=== PATIENT | male | born 1955 | race Caucasian/White ===

== ENCOUNTER 2023-06-02 19:27 | Inpatient (IN) | payer MEDICAID ==
[~2023-06-02] VITALS: Ht 172.7 cm; Wt 65.1 kg
[~2023-06-02 19:27] MED LIST: AMOX-580 PO; ATOR20TA66 PO; CARV6.253 PO; EMPA10TA PO; FURO40TA4 PO; LISI5TAB22 PO; NO HOME MEDS; NYSPWD TP
[2023-06-02] MEDS: CefTRIAXone/D5W-Rocephin 1gm 50 ML IV ONE (21:19)
[2023-06-02 23:58] VITALS: PULSE 87; RESP 27; O2SAT 99
[2023-06-03] VITALS (14 sets, daily range): BP systolic 114–147; BP diastolic 75–90; PULSE 76–88; RESP 16–27; O2SAT 94–99
[2023-06-03] MEDS: DOXYCYCLINE 100 MG in NORMAL SALINE 100ml IV.SOLN IV ONE
[2023-06-03] MEDS: normal saline 1000ml 1,000 ML IV SCH (02:10)
[2023-06-03] MEDS: propofol 1000mg/100ml bottle 100 ML IV SCH (02:15)
[2023-06-03] MEDS: ipratropium/albuterol 3ml nebule NEB ONE (02:20)
[2023-06-03] MEDS: LidoCAINE 2% Topical Jelly 11mL syringe TOP ONE (02:25)
[2023-06-03 03:11] LABS: BILIRUBIN,URINE SMALL (Neg); CLARITY,URINE SLIGHTLY CLOUDY (Clear); COLOR,URINE AMBER (Yellow); GLUCOSE, URINE NEGATIVE (Neg); KETONES,URINE NEGATIVE (Neg); LEUKOCYTE ESTERASE ,URINE NEGATIVE (Neg); NITRITES, URINE NEGATIVE (Neg); OCCULT BLOOD,URINE MODERATE (Neg); PROTEIN,URINE >=300 mg/dl (Neg)
[2023-06-03 03:12] LABS: UA COLLECTION TYPE FOLEY CATH
[2023-06-03 03:23] LABS: HYALINE CASTS 0-3 /LPF (NEGATIVE)
[2023-06-03 03:25] LABS: RBC,URINE 0-2 /HPF (0-2); WBC,URINE 0-4 /HPF (0-4)
[2023-06-03 03:26] LABS: TRANSITIONAL EPI CELLS,URINE MODERATE /HPF
[2023-06-03 03:28] LABS: AMORPHOUS URATES 1+; BACTERIA,URINE NONE SEEN /HPF (Neg); MUCUS STRANDS FEW /LPF (Neg)
[2023-06-03] MEDS: heparin, porcine 5000 units/ml vial SQ ONE (05:06)
[2023-06-03] MEDS ORDERED: rocuronium 10mg/ml inj IV ONE (08:00)
[2023-06-03] MEDS ORDERED: sodium bicarbonate (8.4%) 1 mEq/ml syringe ONE (08:00)
[2023-06-03] MEDS ORDERED: epiNEPHrine 0.1mg/ml 10ml syringe ONE (08:00)
[2023-06-03] MEDS ORDERED: etomidate 2mg/ml inj. ONE (08:00)
[2023-06-03] MEDS: dexamethasone inj 6 MG in normal saline 50ml IV soln 50 ML IV SCH (08:09)
[2023-06-04] VITALS (32 sets, daily range): BP systolic 93–154; BP diastolic 59–90; PULSE 64–90; RESP 12–28; O2SAT 91–100
[2023-06-04 06:13] LABS: ALBUMIN 2.7 G/DL (3.4-5.0); ALBUMIN/GLOBULIN RATIO 0.6 (1.1-1.5); ALKALINE PHOSPHATASE 108 IU/L (46-116); ANION GAP 9 (8-16); BILIRUBIN,TOTAL 0.5 MG/DL (0.1-1.0); CHLORIDE 103 MMOL/L (99-107); GLUCOSE 90 MG/DL (70-104); SODIUM 138 MMOL/L (135-145)
[2023-06-04 06:17] LABS: BASOPHILS % (AUTO) 0.2 % (0-1); EOSINOPHILS % (AUTO) 0 % (0-6); HEMATOCRIT 37.9 % (42.0-52.0); HEMOGLOBIN 12.1 g/dl (14.0-17.9); LYMPHOCYTES # (AUTO) 0.3 X10'3 (1.1-4.8); LYMPHOCYTES % (AUTO) 5.2 % (21-51); MEAN CORPUSCULAR HEMOGLOBIN 30.1 PG (27.0-31.0); MEAN CORPUSCULAR HGB CONC 31.9 g/dL (33.0-36.5); MEAN CORPUSCULAR VOLUME 94.4 FL (78-98); MEAN PLATELET VOLUME 7.5 FL (7.4-10.4); MONOCYTES # (AUTO) 0.4 X10'3 (0-0.9); MONOCYTES % (AUTO) 6.8 % (2-12); NEUTROPHILS # (AUTO) 5.3 X10'3 (1.8-7.7); NEUTROPHILS % (AUTO) 87.8 % (42-75); PLATELET COUNT 208 X10'3 (140-440); RED BLOOD COUNT 4.02 X10'6 (4.70-6.10); RED CELL DISTRIBUTION WIDTH 15.6 % (11.5-14.5)
[2023-06-04 06:31] LABS: ALANINE AMINOTRANSFERASE 255 U/L (12-78); ASPARTATE AMINO TRANSFERASE 414 U/L (10-37); BLOOD UREA NITROGEN 54 MG/DL (7-18); BUN/CREATININE RATIO 26.3 (10.0-20.0); CALCIUM 8.1 MG/DL (8.5-10.1); CREATININE 2.05 MG/DL (0.60-1.10); MAGNESIUM 2.1 MG/DL (1.5-2.4); PHOSPHORUS 6.2 MG/DL (2.3-4.5); POTASSIUM 5.3 MMOL/L (3.5-5.1); TOTAL CARBON DIOXIDE 25.7 MMOL/L (24-32); TOTAL PROTEIN 7.1 G/DL (6.4-8.2); eCRCL 34 ML/MIN; eGFR 33 ML/MIN
[2023-06-04] MEDS: budesonide 0.5mg/2ml UD nebule IH SCH (07:43)
[2023-06-04] MEDS: ipratropium/albuterol 3ml nebule NEB SCH (07:44)
[2023-06-04] MEDS: CefTRIAXone/D5W-Rocephin 1gm 50 ML IV SCH (09:20)
[2023-06-04] MEDS: methylPREDNISolone sod succ/PF 40mg inj. IV SCH (09:20)
[2023-06-04] MEDS: aspirin 81mg, enteric-coated 1 TAB TABLET.DR PO SCH (09:20)
[2023-06-04] MEDS: pantoprazole 40 MG vial IV SCH (09:20)
[2023-06-04] MEDS ORDERED: LISI5TAB22 PO (10:44)
[2023-06-04] MEDS ORDERED: CARV6.2553 PO (10:44)
[2023-06-04] MEDS ORDERED: ATOR20TA66 PO (10:44)
[2023-06-04] MEDS ORDERED: FURO40TA4 PO (10:44)
[2023-06-04] MEDS ORDERED: EMPA10TA PO (10:44)
[2023-06-04] MEDS ORDERED: guaiFENesin 200 MG/10 ML oral syrup UD cup PO PRN (15:50)
[2023-06-04] MEDS ORDERED: normal saline 1000ml 1,000 ML IV SCH (16:38)
[2023-06-04] MEDS ORDERED: potassium Cl 20 mEq SR tablet PO PRN ×2 (16:40)
[2023-06-04] MEDS ORDERED: potassium Cl 40MEQ/1/2NS 520ml 520 ML IV PRN (16:40)
[2023-06-04] MEDS ORDERED: magnesium 2GM in 50ml NS 50 ML IV PRN (16:40)
[2023-06-04] MEDS ORDERED: mag hydrox/Alum hydrox/simeth 30ml oral suspension PO PRN (16:40)
[2023-06-04] MEDS ORDERED: magnesium Cl slow-release 64mg tablet PO PRN (16:40)
[2023-06-04] MEDS ORDERED: ondansetron/PF 4mg/2ml inj IV PRN (16:40)
[2023-06-04] MEDS ORDERED: magnesium hydroxide 30ml (MOM) UD suspension PO PRN (16:40)
[2023-06-04] MEDS ORDERED: magnesium 4gm in 100ml NS 100 ML IV PRN (16:40)
[2023-06-04] MEDS ORDERED: albuterol 2.5 MG/3 ML nebule NEB PRN (16:40)
[2023-06-04] MEDS ORDERED: CALCIUM GLUC 1gm/50ml NACL,iso 50 ML IV PRN (17:05)
[2023-06-04] MEDS ORDERED: dextrose 50%-water 50ml dispensing syringe IV ONE (17:05)
[2023-06-04] MEDS ORDERED: sodium bicarbonate (8.4%) 1 mEq/ml syringe IV ONE (17:05)
[2023-06-04] MEDS ORDERED: insulin regular, human 10 units/0.1 ml syringe IV ONE (17:05)
[2023-06-04] MEDS: K and/or MAG REPLACEMENT MC SCH (20:00)
[2023-06-04] MEDS: azithromycin/NS 500mg/250ml 250 ML IV SCH (20:00)
[2023-06-04] MEDS: docusate sod 100mg capsule PO SCH (20:00)
[2023-06-04] MEDS: carvedilol 6.25mg tablet PO SCH (20:00)
[2023-06-04] MEDS: heparin, porcine 5000 units/ml vial SQ SCH (20:00)
[2023-06-04] MEDS: LORazepam 2 mg/ml vial IV PRN (20:01)
[2023-06-04] MEDS: LORazepam 2 mg/ml vial IM ONE (20:01)
[2023-06-04] MEDS: enoxaparin 40mg/0.4ml syringe SUBCUT SCH (20:25)
[2023-06-05] VITALS (40 sets, daily range): BP systolic 71–162; BP diastolic 49–112; PULSE 49–65; RESP 19–23; O2SAT 92–99
[2023-06-05] MEDS ORDERED: DEXTROSE 15 GM of carb/4 tabs (each vial/BOTTLE has 4 tablets) PO PRN ×2
[2023-06-05] MEDS ORDERED: dextrose 50%-water 50ml dispensing syringe IV PRN ×2
[2023-06-05] MEDS: MESSAGE TO PHARMACY PO ONE
[2023-06-05] MEDS ORDERED: glucagon, human recombinant 1mg kit SUBCUT PRN
[2023-06-05] MEDS: furosemide 40mg/4ml inj IV ONE (00:26)
[2023-06-05] MEDS: furosemide 40mg/4ml inj ONE (00:26)
[2023-06-05] MEDS: insulin Lispro (HumaLOG) vial - multi-dose SQ SCH (04:05)
[2023-06-05 06:24] LABS: BASOPHILS % (AUTO) 0.1 % (0-1); EOSINOPHILS % (AUTO) 0 % (0-6); HEMATOCRIT 36.7 % (42.0-52.0); HEMOGLOBIN 11.7 g/dl (14.0-17.9); LYMPHOCYTES # (AUTO) 0.2 X10'3 (1.1-4.8); LYMPHOCYTES % (AUTO) 3.7 % (21-51); MEAN CORPUSCULAR HEMOGLOBIN 29.8 PG (27.0-31.0); MEAN CORPUSCULAR HGB CONC 31.8 g/dL (33.0-36.5); MEAN CORPUSCULAR VOLUME 93.8 FL (78-98); MEAN PLATELET VOLUME 7.8 FL (7.4-10.4); MONOCYTES # (AUTO) 0.2 X10'3 (0-0.9); MONOCYTES % (AUTO) 3.3 % (2-12); NEUTROPHILS # (AUTO) 4.5 X10'3 (1.8-7.7); NEUTROPHILS % (AUTO) 92.9 % (42-75); PLATELET COUNT 194 X10'3 (140-440); RED BLOOD COUNT 3.91 X10'6 (4.70-6.10); RED CELL DISTRIBUTION WIDTH 15.7 % (11.5-14.5); WHITE BLOOD COUNT 4.8 X10'3 (4.5-11.0)
[2023-06-05 06:35] LABS: ALBUMIN 2.4 G/DL (3.4-5.0); ANION GAP 6 (8-16); BLOOD UREA NITROGEN 58 MG/DL (7-18); BUN/CREATININE RATIO 25.9 (10.0-20.0); CALCIUM 7.9 MG/DL (8.5-10.1); CHLORIDE 105 MMOL/L (99-107); CREATININE 2.24 MG/DL (0.60-1.10); GLUCOSE 142 MG/DL (70-104); POTASSIUM 5.1 MMOL/L (3.5-5.1); SODIUM 140 MMOL/L (135-145); TOTAL CARBON DIOXIDE 28.7 MMOL/L (24-32); eCRCL 31 ML/MIN; eGFR 29 ML/MIN
[2023-06-05] MEDS: atorvastatin 20mg tablet PO SCH (08:00)
[2023-06-05] MEDS: dexmedetomidin/NS 400mcg/100ml 100 ML IV PRN (08:30)
[2023-06-05 09:27] LABS: ALANINE AMINOTRANSFERASE 205 U/L (12-78); ALBUMIN/GLOBULIN RATIO 0.6 (1.1-1.5); ALKALINE PHOSPHATASE 91 IU/L (46-116); ASPARTATE AMINO TRANSFERASE 321 U/L (10-37); BILIRUBIN,TOTAL 0.4 MG/DL (0.1-1.0); MAGNESIUM 2.1 MG/DL (1.5-2.4); PHOSPHORUS 5.5 MG/DL (2.3-4.5); TOTAL PROTEIN 6.5 G/DL (6.4-8.2)
[2023-06-05] MEDS: NORepinephrine 8mg/ 250ml NS 250 ML IV SCH (10:52)
[2023-06-05] MEDS: NORepinephrine 8mg/ 250ml NS 250 ML IV ONE (10:52)
[2023-06-05] MEDS ORDERED: FENTANYL-0.9 % NACL/PF 100 ML IV PRN (11:15)
[2023-06-05] MEDS ORDERED: propofol 1000mg/100ml bottle 100 ML IV SCH (11:15)
[2023-06-05] MEDS: propofol 1000mg/100ml bottle 100 ML IV ONE (11:16)
[2023-06-05] MEDS: fentaNYL/PF 50MCG/1 ML 2ML syringe ONE (11:16)
[2023-06-05] MEDS ORDERED: fentaNYL/PF 50MCG/1 ML 2ML syringe IV PRN (11:20)
[2023-06-05] MEDS: LIDOcaine 1% (10mg/ml) 2ml vial ONE ×2 (11:25)
[2023-06-05 12:58] LABS: ABG HCO3 21.8 mmol/L (22.0-26.0); ABG OXYGEN SATURATION 99.4 % (94-97); ABG PCO2 (T) 32.5 mmHg (35.0-48.0); ABG PO2 (T) 154.4 mmHg (75.0-100.0); ALLEN'S TEST POSITIVE; FCOHb 0.1 % (0.0-3.9); FHHb 0.6 % (0.0-5.0); FMetHb 0.3 % (0.0-1.5); MODE VENT - PRVC; PATIENT TEMPERATURE 35.8; PEEP 5 cm H2O; RESPIRATORY RATE 22 b/min; TIDAL VOLUME 400 mL; TOTAL HEMOGLOBIN 12.6 G/dl (14.0-17.9)
[2023-06-05] MEDS: FENTANYL-0.9 % NACL/PF 100 ML IV PRN (14:36)
[2023-06-05] MEDS: propofol 1000mg/100ml bottle 100 ML IV SCH (14:37)
[2023-06-05 16:08] LABS: TRIGLYCERIDES 125 MG/DL (20-135)
[2023-06-05] MEDS: docusate sodium 100mg/10ml UD cup NG SCH (20:14)
[2023-06-05] MEDS: insulin glargine (Lantus) pen - multi-dose SQ SCH (21:00)
[2023-06-06] VITALS (39 sets, daily range): BP systolic 98–129; BP diastolic 56–79; PULSE 47–67; RESP 20–22; O2SAT 92–98
[2023-06-06 02:58] LABS: BASOPHILS % (AUTO) 0.3 % (0-1); EOSINOPHILS % (AUTO) 0 % (0-6); HEMATOCRIT 34.1 % (42.0-52.0); HEMOGLOBIN 11.3 g/dl (14.0-17.9); LYMPHOCYTES # (AUTO) 0.1 X10'3 (1.1-4.8); LYMPHOCYTES % (AUTO) 3.3 % (21-51); MEAN CORPUSCULAR HEMOGLOBIN 29.9 PG (27.0-31.0); MEAN CORPUSCULAR HGB CONC 33.1 g/dL (33.0-36.5); MEAN CORPUSCULAR VOLUME 90.2 FL (78-98); MEAN PLATELET VOLUME 8.1 FL (7.4-10.4); MONOCYTES # (AUTO) 0.1 X10'3 (0-0.9); MONOCYTES % (AUTO) 3.4 % (2-12); PLATELET COUNT 189 X10'3 (140-440); RED BLOOD COUNT 3.79 X10'6 (4.70-6.10); RED CELL DISTRIBUTION WIDTH 15.2 % (11.5-14.5); WHITE BLOOD COUNT 4.3 X10'3 (4.5-11.0)
[2023-06-06 03:02] LABS: ANION GAP 7 (8-16); BILIRUBIN,TOTAL 0.5 MG/DL (0.1-1.0); BLOOD UREA NITROGEN 66 MG/DL (7-18); BUN/CREATININE RATIO 29.2 (10.0-20.0); CALCIUM 7.8 MG/DL (8.5-10.1); CHLORIDE 105 MMOL/L (99-107); CREATININE 2.26 MG/DL (0.60-1.10); GLUCOSE 129 MG/DL (70-104); MAGNESIUM 2.2 MG/DL (1.5-2.4); PHOSPHORUS 3.8 MG/DL (2.3-4.5); POTASSIUM 4.3 MMOL/L (3.5-5.1); SODIUM 138 MMOL/L (135-145); TOTAL CARBON DIOXIDE 26.2 MMOL/L (24-32); eCRCL 31 ML/MIN; eGFR 29 ML/MIN
[2023-06-06 03:03] LABS: ALANINE AMINOTRANSFERASE 176 U/L (12-78); ALBUMIN 2.2 G/DL (3.4-5.0); ALBUMIN/GLOBULIN RATIO 0.6 (1.1-1.5); ALKALINE PHOSPHATASE 77 IU/L (46-116); ASPARTATE AMINO TRANSFERASE 245 U/L (10-37); TOTAL PROTEIN 5.9 G/DL (6.4-8.2); TRIGLYCERIDES 287 MG/DL (20-135)
[2023-06-06 03:17] LABS: ABG BASE EXCESS 0.2 mmol/L (-2.0-2.0); ABG HCO3 23.3 mmol/L (22.0-26.0); ABG OXYGEN SATURATION 98.1 % (94-97); ABG PH (T) 7.488 (7.340-7.440); ABG PO2 (T) 98.2 mmHg (75.0-100.0); ALLEN'S TEST Modified; FCOHb 0.3 % (0.0-3.9); FHHb 1.9 % (0.0-5.0); FMetHb 0.3 % (0.0-1.5); FO2Hb 97.5 % (94-97); MODE VENT - prvc; PATIENT TEMPERATURE 35.6; PEEP 5 cm H2O; RESPIRATORY RATE 22 b/min; TIDAL VOLUME 400 mL; TOTAL HEMOGLOBIN 12.4 G/dl (14.0-17.9)
[2023-06-06] MEDS: mineral oil/petrolatum ophthal oint EACHEYE SCH (13:56)
[2023-06-06] MEDS ORDERED: furosemide 40mg/4ml inj IV ONE (16:55)
[2023-06-06] MEDS ORDERED: furosemide 40mg/4ml inj IV SCH (17:30)
[2023-06-07] VITALS (44 sets, daily range): BP systolic 105–155; BP diastolic 60–100; PULSE 54–71; RESP 10–22; O2SAT 93–97
[2023-06-07 02:11] LABS: BASOPHILS % (AUTO) 0.2 % (0-1); EOSINOPHILS % (AUTO) 0 % (0-6); HEMATOCRIT 34.4 % (42.0-52.0); HEMOGLOBIN 11.1 g/dl (14.0-17.9); LYMPHOCYTES # (AUTO) 0.2 X10'3 (1.1-4.8); MEAN CORPUSCULAR HEMOGLOBIN 29.2 PG (27.0-31.0); MEAN CORPUSCULAR HGB CONC 32.2 g/dL (33.0-36.5); MEAN CORPUSCULAR VOLUME 90.9 FL (78-98); MEAN PLATELET VOLUME 8.2 FL (7.4-10.4); MONOCYTES # (AUTO) 0.1 X10'3 (0-0.9); MONOCYTES % (AUTO) 3.8 % (2-12); NEUTROPHILS # (AUTO) 3.6 X10'3 (1.8-7.7); PLATELET COUNT 182 X10'3 (140-440); RED BLOOD COUNT 3.78 X10'6 (4.70-6.10); RED CELL DISTRIBUTION WIDTH 15.3 % (11.5-14.5); WHITE BLOOD COUNT 3.9 X10'3 (4.5-11.0)
[2023-06-07 02:18] LABS: ALANINE AMINOTRANSFERASE 148 U/L (12-78); ALBUMIN 2.1 G/DL (3.4-5.0); ALBUMIN/GLOBULIN RATIO 0.6 (1.1-1.5); ALKALINE PHOSPHATASE 72 IU/L (46-116); ANION GAP 5 (8-16); ASPARTATE AMINO TRANSFERASE 207 U/L (10-37); BILIRUBIN,TOTAL 0.4 MG/DL (0.1-1.0); BLOOD UREA NITROGEN 67 MG/DL (7-18); BUN/CREATININE RATIO 33.3 (10.0-20.0); CALCIUM 7.6 MG/DL (8.5-10.1); CHLORIDE 106 MMOL/L (99-107); CREATININE 2.01 MG/DL (0.60-1.10); GLUCOSE 166 MG/DL (70-104); MAGNESIUM 2.3 MG/DL (1.5-2.4); PHOSPHORUS 3.6 MG/DL (2.3-4.5); POTASSIUM 4.4 MMOL/L (3.5-5.1); PREALBUMIN 13.3 MG/DL (19-36); SODIUM 139 MMOL/L (135-145); TOTAL CARBON DIOXIDE 27.7 MMOL/L (24-32); TOTAL PROTEIN 5.7 G/DL (6.4-8.2); TRIGLYCERIDES 186 MG/DL (20-135); eCRCL 35 ML/MIN; eGFR 33 ML/MIN
[2023-06-07 03:42] LABS: ABG HCO3 24.9 mmol/L (22.0-26.0); ABG OXYGEN SATURATION 95.5 % (94-97); ABG PCO2 (T) 36.4 mmHg (35.0-48.0); ABG PH (T) 7.451 (7.340-7.440); ABG PO2 (T) 76.2 mmHg (75.0-100.0); ALLEN'S TEST POSITIVE; FCOHb 0.3 % (0.0-3.9); FHHb 4.5 % (0.0-5.0); FMetHb 0.3 % (0.0-1.5); FO2Hb 94.9 % (94-97); MODE VENT - AC; PATIENT TEMPERATURE 36.6; PEEP 5 cm H2O; RESPIRATORY RATE 20 b/min; TIDAL VOLUME 400 mL; TOTAL HEMOGLOBIN 11.9 G/dl (14.0-17.9)
[2023-06-07] MEDS: risperiDONE 2mg tablet OGT SCH (11:10)
[2023-06-07] MEDS: furosemide 40mg/4ml inj IV ONE (11:11)
[2023-06-08] VITALS (38 sets, daily range): BP systolic 118–162; BP diastolic 59–100; PULSE 56–87; RESP 13–24; O2SAT 94–99
[2023-06-08 01:43] LABS: BASOPHILS % (AUTO) 0.4 % (0-1); EOSINOPHILS % (AUTO) 0 % (0-6); HEMATOCRIT 37.2 % (42.0-52.0); HEMOGLOBIN 12.3 g/dl (14.0-17.9); LYMPHOCYTES # (AUTO) 0.2 X10'3 (1.1-4.8); LYMPHOCYTES % (AUTO) 3.6 % (21-51); MEAN CORPUSCULAR HEMOGLOBIN 29.8 PG (27.0-31.0); MEAN CORPUSCULAR VOLUME 90.4 FL (78-98); MEAN PLATELET VOLUME 8.3 FL (7.4-10.4); MONOCYTES # (AUTO) 0.2 X10'3 (0-0.9); MONOCYTES % (AUTO) 4.2 % (2-12); NEUTROPHILS # (AUTO) 4.8 X10'3 (1.8-7.7); NEUTROPHILS % (AUTO) 91.8 % (42-75); PLATELET COUNT 186 X10'3 (140-440); RED BLOOD COUNT 4.11 X10'6 (4.70-6.10); RED CELL DISTRIBUTION WIDTH 15.4 % (11.5-14.5); WHITE BLOOD COUNT 5.2 X10'3 (4.5-11.0)
[2023-06-08 01:59] LABS: ALANINE AMINOTRANSFERASE 151 U/L (12-78); ALBUMIN 2.3 G/DL (3.4-5.0); ALBUMIN/GLOBULIN RATIO 0.5 (1.1-1.5); ALKALINE PHOSPHATASE 82 IU/L (46-116); ANION GAP 6 (8-16); ASPARTATE AMINO TRANSFERASE 186 U/L (10-37); BILIRUBIN,TOTAL 0.4 MG/DL (0.1-1.0); BLOOD UREA NITROGEN 76 MG/DL (7-18); BUN/CREATININE RATIO 41.3 (10.0-20.0); CALCIUM 7.7 MG/DL (8.5-10.1); CHLORIDE 104 MMOL/L (99-107); CREATININE 1.84 MG/DL (0.60-1.10); GLUCOSE 128 MG/DL (70-104); MAGNESIUM 2.2 MG/DL (1.5-2.4); PHOSPHORUS 2.9 MG/DL (2.3-4.5); POTASSIUM 4.7 MMOL/L (3.5-5.1); SODIUM 141 MMOL/L (135-145); TOTAL CARBON DIOXIDE 30.6 MMOL/L (24-32); TOTAL PROTEIN 6.5 G/DL (6.4-8.2); TRIGLYCERIDES 63 MG/DL (20-135); eCRCL 38 ML/MIN; eGFR 37 ML/MIN
[2023-06-08 03:40] LABS: ABG BASE EXCESS 4.1 mmol/L (-2.0-2.0); ABG HCO3 28.3 mmol/L (22.0-26.0); ABG OXYGEN SATURATION 96.3 % (94-97); ABG PCO2 (T) 40.7 mmHg (35.0-48.0); ABG PO2 (T) 78.1 mmHg (75.0-100.0); ALLEN'S TEST Modified; FCOHb 0.4 % (0.0-3.9); FHHb 3.7 % (0.0-5.0); FMetHb 0.3 % (0.0-1.5); FO2Hb 95.6 % (94-97); MODE ac/prvc; PATIENT TEMPERATURE 36.9; PEEP 5 cm H2O; RESPIRATORY RATE 20 b/min; TIDAL VOLUME 400 mL; TOTAL HEMOGLOBIN 13.4 G/dl (14.0-17.9)
[2023-06-08] MEDS: furosemide 40mg/4ml inj IV SCH (08:37)
[2023-06-08] MEDS: lactulose 20gm/30ml cup OGT SCH (14:37)
[2023-06-08] MEDS: albuterol 60 PUFF/8GM Inhaler (90mcg/1 puff) IH SCH (21:08)
[2023-06-09] VITALS (27 sets, daily range): BP systolic 120–167; BP diastolic 78–108; PULSE 74–89; RESP 15–24; TEMP 97.6; O2SAT 93–97
[2023-06-09 03:44] LABS: BASOPHILS % (AUTO) 0.1 % (0-1); EOSINOPHILS % (AUTO) 0 % (0-6); HEMATOCRIT 35.7 % (42.0-52.0); HEMOGLOBIN 11.9 g/dl (14.0-17.9); LYMPHOCYTES # (AUTO) 0.2 X10'3 (1.1-4.8); LYMPHOCYTES % (AUTO) 3.2 % (21-51); MEAN CORPUSCULAR HEMOGLOBIN 30.8 PG (27.0-31.0); MEAN CORPUSCULAR HGB CONC 33.3 g/dL (33.0-36.5); MEAN CORPUSCULAR VOLUME 92.6 FL (78-98); MEAN PLATELET VOLUME 8.5 FL (7.4-10.4); MONOCYTES # (AUTO) 0.2 X10'3 (0-0.9); MONOCYTES % (AUTO) 3.8 % (2-12); NEUTROPHILS # (AUTO) 5.3 X10'3 (1.8-7.7); NEUTROPHILS % (AUTO) 92.9 % (42-75); PLATELET COUNT 195 X10'3 (140-440); RED BLOOD COUNT 3.86 X10'6 (4.70-6.10); RED CELL DISTRIBUTION WIDTH 15.4 % (11.5-14.5); WHITE BLOOD COUNT 5.7 X10'3 (4.5-11.0)
[2023-06-09 03:47] LABS: ALANINE AMINOTRANSFERASE 122 U/L (12-78); ALBUMIN 2.5 G/DL (3.4-5.0); ALBUMIN/GLOBULIN RATIO 0.6 (1.1-1.5); ALKALINE PHOSPHATASE 73 IU/L (46-116); ANION GAP 5 (8-16); ASPARTATE AMINO TRANSFERASE 151 U/L (10-37); BILIRUBIN,TOTAL 0.4 MG/DL (0.1-1.0); BLOOD UREA NITROGEN 69 MG/DL (7-18); BUN/CREATININE RATIO 45.7 (10.0-20.0); CALCIUM 7.9 MG/DL (8.5-10.1); CHLORIDE 104 MMOL/L (99-107); CREATININE 1.51 MG/DL (0.60-1.10); GLUCOSE 97 MG/DL (70-104); MAGNESIUM 2.1 MG/DL (1.5-2.4); PHOSPHORUS 5.3 MG/DL (2.3-4.5); POTASSIUM 4.7 MMOL/L (3.5-5.1); SODIUM 142 MMOL/L (135-145); TOTAL CARBON DIOXIDE 32.8 MMOL/L (24-32); TOTAL PROTEIN 6.6 G/DL (6.4-8.2); eCRCL 47 ML/MIN; eGFR 46 ML/MIN
[2023-06-09] MEDS: furosemide 40mg/4ml inj IV SCH (12:57)
[2023-06-09] MEDS: lactose-reduced food (Ensure Enlive) - 237ml bottle PO SCH (13:00)
[2023-06-09] MEDS: acetaminophen 325mg tablet PO PRN (17:30)
[2023-06-10] VITALS (14 sets, daily range): BP systolic 130–153; BP diastolic 76–91; PULSE 82–99; RESP 10–18; TEMP 98–98.8; O2SAT 91–95
[2023-06-10 03:51] LABS: ABG BASE EXCESS 16.8 mmol/L (-2.0-2.0); ABG HCO3 44.8 mmol/L (22.0-26.0); ABG OXYGEN SATURATION 91.5 % (94-97); ABG PCO2 (T) 65.9 mmHg (35.0-48.0); ABG PH (T) 7.448 (7.340-7.440); ABG PO2 (T) 57.6 mmHg (75.0-100.0); ALLEN'S TEST Modified; FCOHb 0.9 % (0.0-3.9); FHHb 8.4 % (0.0-5.0); FLOW 2 L/min; FMetHb 0.3 % (0.0-1.5); FO2Hb 90.4 % (94-97); MODE NASAL CANNULA; PATIENT TEMPERATURE 36.4; TOTAL HEMOGLOBIN 14.8 G/dl (14.0-17.9)
[2023-06-10 04:47] LABS: ALANINE AMINOTRANSFERASE 124 U/L (12-78); ALBUMIN 2.8 G/DL (3.4-5.0); ALBUMIN/GLOBULIN RATIO 0.6 (1.1-1.5); ALKALINE PHOSPHATASE 93 IU/L (46-116); ANION GAP 5 (8-16); ASPARTATE AMINO TRANSFERASE 143 U/L (10-37); BILIRUBIN,TOTAL 0.5 MG/DL (0.1-1.0); BLOOD UREA NITROGEN 61 MG/DL (7-18); BUN/CREATININE RATIO 41.8 (10.0-20.0); CALCIUM 8.4 MG/DL (8.5-10.1); CHLORIDE 97 MMOL/L (99-107); CREATININE 1.46 MG/DL (0.60-1.10); GLUCOSE 74 MG/DL (70-104); MAGNESIUM 1.9 MG/DL (1.5-2.4); PHOSPHORUS 3.9 MG/DL (2.3-4.5); SODIUM 143 MMOL/L (135-145); TOTAL PROTEIN 7.6 G/DL (6.4-8.2); eCRCL 48 ML/MIN; eGFR 48 ML/MIN
[2023-06-10 05:06] LABS: TOTAL CARBON DIOXIDE 41.2 MMOL/L (24-32)
[2023-06-10] MEDS: dexamethasone 4mg/ml inj IV SCH (07:29)
[2023-06-10] MEDS ORDERED: dexamethasone 4mg/ml inj IM SCH (08:00)
[2023-06-10] MEDS: furosemide 40mg/4ml inj IV SCH (13:52)
[2023-06-11] VITALS (13 sets, daily range): BP systolic 97–135; BP diastolic 59–85; PULSE 91–105; RESP 14–24; TEMP 97.9–98.6; O2SAT 92–95
[2023-06-11 07:43] LABS: ALANINE AMINOTRANSFERASE 94 U/L (12-78); ALBUMIN/GLOBULIN RATIO 0.6 (1.1-1.5); ALKALINE PHOSPHATASE 91 IU/L (46-116); ANION GAP 10 (8-16); ASPARTATE AMINO TRANSFERASE 118 U/L (10-37); BILIRUBIN,TOTAL 0.6 MG/DL (0.1-1.0); BLOOD UREA NITROGEN 72 MG/DL (7-18); BUN/CREATININE RATIO 44.2 (10.0-20.0); CALCIUM 9.3 MG/DL (8.5-10.1); CHLORIDE 95 MMOL/L (99-107); CREATININE 1.63 MG/DL (0.60-1.10); GLUCOSE 100 MG/DL (70-104); SODIUM 146 MMOL/L (135-145); TOTAL PROTEIN 8.2 G/DL (6.4-8.2); eCRCL 43 ML/MIN; eGFR 43 ML/MIN
[2023-06-11 07:47] LABS: TOTAL CARBON DIOXIDE 41.3 MMOL/L (24-32)
[2023-06-11 08:29] LABS: BASOPHILS % (AUTO) 0.3 % (0-1); EOSINOPHILS # (AUTO) 0.1 X10'3 (0-0.9); EOSINOPHILS % (AUTO) 0.7 % (0-6); HEMATOCRIT 46.6 % (42.0-52.0); HEMOGLOBIN 15.3 g/dl (14.0-17.9); LYMPHOCYTES # (AUTO) 0.4 X10'3 (1.1-4.8); LYMPHOCYTES % (AUTO) 5.5 % (21-51); MEAN CORPUSCULAR HEMOGLOBIN 28.8 PG (27.0-31.0); MEAN CORPUSCULAR HGB CONC 32.9 g/dL (33.0-36.5); MEAN PLATELET VOLUME 8.5 FL (7.4-10.4); MONOCYTES # (AUTO) 0.6 X10'3 (0-0.9); MONOCYTES % (AUTO) 8.4 % (2-12); NEUTROPHILS # (AUTO) 6.4 X10'3 (1.8-7.7); NEUTROPHILS % (AUTO) 85.1 % (42-75); PLATELET COUNT 251 X10'3 (140-440); RED BLOOD COUNT 5.31 X10'6 (4.70-6.10); RED CELL DISTRIBUTION WIDTH 15.1 % (11.5-14.5); WHITE BLOOD COUNT 7.5 X10'3 (4.5-11.0)
[2023-06-11 08:35] LABS: MEAN CORPUSCULAR VOLUME 88.6 FL (78-98)
[2023-06-11] MEDS: furosemide 40mg/4ml inj IV SCH (20:00)
[2023-06-12] VITALS (13 sets, daily range): BP systolic 91–128; BP diastolic 63–79; PULSE 87–105; RESP 14–24; TEMP 97.9–98.8; O2SAT 81–95
[2023-06-12 06:40] LABS: BASOPHILS % (AUTO) 0.3 % (0-1); EOSINOPHILS % (AUTO) 0.1 % (0-6); HEMATOCRIT 45.2 % (42.0-52.0); HEMOGLOBIN 15.1 g/dl (14.0-17.9); LYMPHOCYTES # (AUTO) 0.5 X10'3 (1.1-4.8); LYMPHOCYTES % (AUTO) 6.1 % (21-51); MEAN CORPUSCULAR HEMOGLOBIN 29.8 PG (27.0-31.0); MEAN CORPUSCULAR HGB CONC 33.4 g/dL (33.0-36.5); MEAN CORPUSCULAR VOLUME 89.1 FL (78-98); MEAN PLATELET VOLUME 8.6 FL (7.4-10.4); MONOCYTES # (AUTO) 0.7 X10'3 (0-0.9); MONOCYTES % (AUTO) 8.1 % (2-12); NEUTROPHILS # (AUTO) 7.3 X10'3 (1.8-7.7); NEUTROPHILS % (AUTO) 85.4 % (42-75); PLATELET COUNT 252 X10'3 (140-440); RED BLOOD COUNT 5.08 X10'6 (4.70-6.10); RED CELL DISTRIBUTION WIDTH 15.4 % (11.5-14.5); WHITE BLOOD COUNT 8.5 X10'3 (4.5-11.0)
[2023-06-12 08:51] LABS: ALANINE AMINOTRANSFERASE 91 U/L (12-78); ALBUMIN 3.1 G/DL (3.4-5.0); ALBUMIN/GLOBULIN RATIO 0.6 (1.1-1.5); ALKALINE PHOSPHATASE 91 IU/L (46-116); ANION GAP 11 (8-16); ASPARTATE AMINO TRANSFERASE 107 U/L (10-37); BILIRUBIN,TOTAL 0.6 MG/DL (0.1-1.0); BLOOD UREA NITROGEN 97 MG/DL (7-18); BUN/CREATININE RATIO 40.4 (10.0-20.0); CALCIUM 9.5 MG/DL (8.5-10.1); CHLORIDE 98 MMOL/L (99-107); GLUCOSE 117 MG/DL (70-104); POTASSIUM 4.6 MMOL/L (3.5-5.1); SODIUM 149 MMOL/L (135-145); TOTAL CARBON DIOXIDE 39.6 MMOL/L (24-32); TOTAL PROTEIN 8.3 G/DL (6.4-8.2); eCRCL 29 ML/MIN; eGFR 27 ML/MIN
[2023-06-12] MEDS: normal saline 1000ml 1,000 ML IV SCH (13:44)
[2023-06-12] MEDS: sodium chloride 0.45% 1,000 ML IV SCH (18:40)
[2023-06-12] MEDS: lactose-reduced food (Ensure Enlive) - 237ml bottle PO SCH (19:30)
[2023-06-13] VITALS (15 sets, daily range): BP systolic 130–142; BP diastolic 65–79; PULSE 74–91; RESP 14–24; TEMP 97.8–98.9; O2SAT 90–95
[2023-06-13 06:12] LABS: BASOPHILS % (AUTO) 0.3 % (0-1); EOSINOPHILS % (AUTO) 0.1 % (0-6); HEMATOCRIT 42.6 % (42.0-52.0); HEMOGLOBIN 13.6 g/dl (14.0-17.9); LYMPHOCYTES # (AUTO) 0.8 X10'3 (1.1-4.8); LYMPHOCYTES % (AUTO) 7.9 % (21-51); MEAN CORPUSCULAR HEMOGLOBIN 28.5 PG (27.0-31.0); MEAN CORPUSCULAR HGB CONC 31.9 g/dL (33.0-36.5); MEAN CORPUSCULAR VOLUME 89.4 FL (78-98); MEAN PLATELET VOLUME 8.5 FL (7.4-10.4); MONOCYTES # (AUTO) 0.5 X10'3 (0-0.9); NEUTROPHILS # (AUTO) 8.6 X10'3 (1.8-7.7); NEUTROPHILS % (AUTO) 86.7 % (42-75); PLATELET COUNT 217 X10'3 (140-440); RED BLOOD COUNT 4.77 X10'6 (4.70-6.10); RED CELL DISTRIBUTION WIDTH 15.8 % (11.5-14.5)
[2023-06-13 06:22] LABS: ALANINE AMINOTRANSFERASE 66 U/L (12-78); ALBUMIN 2.7 G/DL (3.4-5.0); ALBUMIN/GLOBULIN RATIO 0.6 (1.1-1.5); ALKALINE PHOSPHATASE 75 IU/L (46-116); ANION GAP 7 (8-16); ASPARTATE AMINO TRANSFERASE 89 U/L (10-37); BILIRUBIN,TOTAL 0.7 MG/DL (0.1-1.0); BLOOD UREA NITROGEN 109 MG/DL (7-18); BUN/CREATININE RATIO 45.8 (10.0-20.0); CHLORIDE 104 MMOL/L (99-107); CREATININE 2.38 MG/DL (0.60-1.10); GLUCOSE 89 MG/DL (70-104); POTASSIUM 4.2 MMOL/L (3.5-5.1); SODIUM 152 MMOL/L (135-145); TOTAL PROTEIN 7.6 G/DL (6.4-8.2); eCRCL 30 ML/MIN; eGFR 27 ML/MIN
[2023-06-13 06:39] LABS: TOTAL CARBON DIOXIDE 40.6 MMOL/L (24-32)
[2023-06-13] MEDS ORDERED: furosemide 40mg/4ml inj IV SCH (08:00)
[2023-06-13] MEDS: risperiDONE 0.5mg tablet OGT SCH (08:44)
[2023-06-13] MEDS ORDERED: LORazepam 2 mg/ml vial IV PRN (19:10)
[2023-06-13 21:37] LABS: ABG BASE EXCESS 14.9 mmol/L (-2.0-2.0); ABG HCO3 43.3 mmol/L (22.0-26.0); ABG OXYGEN SATURATION 90.3 % (94-97); ABG PCO2 (T) 72.3 mmHg (35.0-48.0); ABG PH (T) 7.396 (7.340-7.440); ABG PO2 (T) 60.8 mmHg (75.0-100.0); ALLEN'S TEST Modified; FCOHb 0.4 % (0.0-3.9); FHHb 9.7 % (0.0-5.0); FLOW 10 L/min; FMetHb 0.1 % (0.0-1.5); FO2Hb 89.8 % (94-97); MODE Salter; PATIENT TEMPERATURE 37.2
[2023-06-13 23:56] LABS: OSMOLALITY 347 MOSM/K (280-300)
[2023-06-14] VITALS (14 sets, daily range): BP systolic 129–163; BP diastolic 65–78; PULSE 74–88; RESP 14–23; TEMP 97.6–99.2; O2SAT 94–96
[2023-06-14 00:09] LABS: PRO BRAIN NATRIURETIC PEPTIDE 2335 PG/ML (0-125)
[2023-06-14 06:56] LABS: EOSINOPHILS % (AUTO) 0 % (0-6); HEMOGLOBIN 12.6 g/dl (14.0-17.9); MONOCYTES # (AUTO) 0.4 X10'3 (0-0.9)
[2023-06-14 07:00] LABS: BASOPHILS % (AUTO) 0.1 % (0-1); HEMATOCRIT 39.4 % (42.0-52.0); LYMPHOCYTES # (AUTO) 0.4 X10'3 (1.1-4.8); LYMPHOCYTES % (AUTO) 4.8 % (21-51); MEAN CORPUSCULAR HEMOGLOBIN 28.5 PG (27.0-31.0); MEAN CORPUSCULAR HGB CONC 32.1 g/dL (33.0-36.5); MEAN PLATELET VOLUME 8.6 FL (7.4-10.4); MONOCYTES % (AUTO) 4.9 % (2-12); NEUTROPHILS # (AUTO) 7.7 X10'3 (1.8-7.7); NEUTROPHILS % (AUTO) 90.2 % (42-75); PLATELET COUNT 188 X10'3 (140-440); RED BLOOD COUNT 4.42 X10'6 (4.70-6.10); RED CELL DISTRIBUTION WIDTH 15.5 % (11.5-14.5); WHITE BLOOD COUNT 8.5 X10'3 (4.5-11.0)
[2023-06-14 07:08] LABS: ALANINE AMINOTRANSFERASE 54 U/L (12-78); ALBUMIN 2.5 G/DL (3.4-5.0); ALBUMIN/GLOBULIN RATIO 0.5 (1.1-1.5); ALKALINE PHOSPHATASE 69 IU/L (46-116); ANION GAP 4 (8-16); ASPARTATE AMINO TRANSFERASE 86 U/L (10-37); BILIRUBIN,TOTAL 0.6 MG/DL (0.1-1.0); BLOOD UREA NITROGEN 87 MG/DL (7-18); BUN/CREATININE RATIO 55.1 (10.0-20.0); CALCIUM 8.8 MG/DL (8.5-10.1); CHLORIDE 107 MMOL/L (99-107); CREATININE 1.58 MG/DL (0.60-1.10); GLUCOSE 87 MG/DL (70-104); POTASSIUM 4.1 MMOL/L (3.5-5.1); SODIUM 151 MMOL/L (135-145); TOTAL CARBON DIOXIDE 39.9 MMOL/L (24-32); TOTAL PROTEIN 7.4 G/DL (6.4-8.2); eCRCL 42 ML/MIN; eGFR 44 ML/MIN
[2023-06-14 07:11] LABS: BILIRUBIN,URINE NEGATIVE (Neg); CLARITY,URINE SLIGHTLY CLOUDY (Clear); COLOR,URINE YELLOW (Yellow); GLUCOSE, URINE NEGATIVE (Neg); KETONES,URINE NEGATIVE (Neg); LEUKOCYTE ESTERASE ,URINE TRACE (Neg); NITRITES, URINE NEGATIVE (Neg); OCCULT BLOOD,URINE LARGE (Neg); PROTEIN,URINE 100 mg/dl (Neg); UROBILINOGEN,URINE 0.2 E.U/dL (0.2-1.0)
[2023-06-14 07:17] LABS: UA COLLECTION TYPE NON-SPECIFIED
[2023-06-14 07:19] LABS: RBC,URINE 20-50 /HPF (0-2)
[2023-06-14 07:20] LABS: BACTERIA,URINE 3+ /HPF (Neg); SQUAMOUS EPITHELIAL CELL,UR FEW /LPF (FEW)
[2023-06-14 07:22] LABS: FATTY CASTS,URINE 0-3 /LPF (NEGATIVE)
[2023-06-14 07:24] LABS: WBC,URINE 30-50 /HPF (0-4)
[2023-06-14 07:30] LABS: TOTAL PROTEIN,URINE RANDOM 133.7 MG/DL
[2023-06-14] MEDS: acetaZOLAMIDE IV 500mg inj IV SCH (12:47)
[2023-06-14] MEDS: spironolactone 25 MG tablet PO SCH (20:00)
[2023-06-15 02:00] VITALS: BP 143/83; PULSE 82; RESP 19; TEMP 97.8; O2SAT 95
[2023-06-15 02:12] VITALS: PULSE 69; RESP 20; O2SAT 93
[2023-06-15 06:30] VITALS: O2SAT 97
[2023-06-15 07:00] VITALS: BP 126/73; PULSE 67; RESP 17; TEMP 98.8; O2SAT 98
[2023-06-15] MEDS ORDERED: LIDOcaine 1% 30ml preserv. free vial ONE (07:28)
[2023-06-15] MEDS ORDERED: iohexol 350MG/ML 100ml bottle IV ONE (07:29)
[2023-06-15] MEDS ORDERED: fentaNYL/PF 50MCG/1 ML 2ML syringe ONE (07:29)
[2023-06-15] MEDS ORDERED: heparin 1,000unit/ml 10ml vial 10 ML ONE (07:29)
[2023-06-15] MEDS ORDERED: heparin 1,000 UNITS/NS 500ml 500 ML ONE (07:29)
[2023-06-15] MEDS ORDERED: midazolam 1 mg/ML 2ml injection ONE (07:29)
[2023-06-15] MEDS ORDERED: nitroGLYCERIN 500mcg/5mL D5W 5 ML IV ONE (07:34)
== END 2023-06-15 07:37 | DRG 133 ==
LOC: EDBD 19:27 → ER 19:27 → ED HOLD 06-03 05:43 → EDBEDREQ 06-03 15:06 → CICU 2S 06-03 15:27 → ORTHO 4S 06-09 18:45 → PCU 3S 06-14 01:15 → CICU 2S 06-15 07:05
PROVIDERS: ADMIT Surgery Surgical Critical Care; ATTEND Surgery Surgical Critical Care
PROC: 5A09357 Assistance with Respiratory Ventilation, Less than 24 Consecutive Hours, Continuous Positive Airway Pressure (ICD-10-PCS; 2023-06-03)
PROC: 5A09357 Assistance with Respiratory Ventilation, Less than 24 Consecutive Hours, Continuous Positive Airway Pressure (ICD-10-PCS; 2023-06-04)
PROC: 0W9B3ZZ Drainage of Left Pleural Cavity, Percutaneous Approach (ICD-10-PCS; principal; 2023-06-05)
PROC: 5A1945Z Respiratory Ventilation, 24-96 Consecutive Hours (ICD-10-PCS; 2023-06-05)
PROC: 0BH17EZ Insertion of Endotracheal Airway into Trachea, Via Natural or Artificial Opening (ICD-10-PCS; 2023-06-05)
PROC: 02HV33Z Insertion of Infusion Device into Superior Vena Cava, Percutaneous Approach (ICD-10-PCS; 2023-06-05)
PROC: 5A0935A Assistance with Respiratory Ventilation, Less than 24 Consecutive Hours, High Flow/Velocity Cannula (ICD-10-PCS; 2023-06-12)
PROC: 5A0935A Assistance with Respiratory Ventilation, Less than 24 Consecutive Hours, High Flow/Velocity Cannula (ICD-10-PCS; 2023-06-13)
PROC: 5A0935A Assistance with Respiratory Ventilation, Less than 24 Consecutive Hours, High Flow/Velocity Cannula (ICD-10-PCS; 2023-06-14)
DX: J96.01 Acute respiratory failure with hypoxia (principal); J12.82 Pneumonia due to coronavirus disease 2019; I50.23 Acute on chronic systolic (congestive) heart failure; G93.41 Metabolic encephalopathy; E43 Unspecified severe protein-calorie malnutrition; I21.A1 Myocardial infarction type 2; U07.1 COVID-19; K76.1 Chronic passive congestion of liver; J96.02 Acute respiratory failure with hypercapnia; I13.0 Hypertensive heart and chronic kidney disease with heart failure and stage 1 through stage 4 chronic kidney disease, or unspecified chronic kidney disease; N18.9 Chronic kidney disease, unspecified; E87.5 Hyperkalemia; F32.A Depression, unspecified; J44.0 Chronic obstructive pulmonary disease with (acute) lower respiratory infection; J44.1 Chronic obstructive pulmonary disease with (acute) exacerbation; J91.8 Pleural effusion in other conditions classified elsewhere; I27.20 Pulmonary hypertension, unspecified; G89.4 Chronic pain syndrome; I71.42 Juxtarenal abdominal aortic aneurysm, without rupture; N17.9 Acute kidney failure, unspecified; N20.0 Calculus of kidney; Z59.00 Homelessness unspecified; Z68.21 Body mass index [BMI] 21.0-21.9, adult
CPT/HCPCS: 36415; 36600; 70450; 71045; 71250; 74176; 80053; 81001; 82140; 82570; 82728; 82803; 82948; 83605; 83615; 83735; 83880; 83930; 83935; 84100; 84133; 84134; 84145; 84156; 84300; 84443; 84478; 84484; 84540; 85007; 85018; 85025; 85610; 85730; 86140; 87040; 87070; 87077; 87081; 87088; 87186; 87502; 87503; 87634; 87811; 92508; 92616; 92950; 93005; 93308; 94002; 94003; 94640; 94660; 94760; 97161; 97530; 99285; A4421; A4615; A5200; A6154; A6213; A6253; A6258; A6449; A7015; C1725; C1751; C1758; C9113; G0378; J0171; J0456; J0696; J1100; J1120; J1644; J1650; J1815; J1940; J2060; J2250; J2704; J2920; J3010; J3490; J7030; J7040; Q9967